=== PATIENT | male | born 1955 | race Two or more races ===

== ENCOUNTER → 2016-12-01 | Day surgery (SDC) | payer BC ==
[~2016-12-01] VITALS: Ht 162.6 cm; Wt 84.0 kg
[~2016-12-01] MED LIST: ALLERGY RELIEF1 EAC1 PO; GARCINIA CAMBO1 EACH PO; NORCO 10-325 T1 EACH PO
--- NOTE | ~2016-12-01 | OR ---
PATIENT'S NAME: MINDA JIANG [facility] AGE: 61 Y [address] ROOM: [place] [id number] LOCATION: [facility] [place] ADMIT DATE: 12/01/2016 OR/Procedure Report DISCHARGE DATE: FAMILY PHYSICIAN: Anirudh Steen ATTENDING PHYSICIAN: Eduardo Roach SURGEON: Eduardo Roach MD SENIOR PROCESS CONTROL TECH: DATE OF PROCEDURE: 12/01/2016 PREOPERATIVE DIAGNOSIS: Left varicocele. POSTOPERATIVE DIAGNOSIS: Left varicocele. PROCEDURE PERFORMED: Left varicocelectomy. ANESTHESIA: General. COMPLICATIONS: None. ESTIMATED BLOOD LOSS: Minimal. INDICATION FOR PROCEDURE: The patient is a 61-year-old male complaining of left testicular pain. The patient was noted to have a left varicocele. I explained to the patient that approximately 10% of varicoceles can cause discomfort. He was also evaluated for inguinal hernia. DETAILS OF PROCEDURE: After informed consent was obtained, the patient was taken to the operating room. A general anesthetic was applied. He was placed in the supine position. The groin and lower abdomen were prepped and draped in normal sterile fashion. A left inguinal skin incision was made with a scalpel blade. Electrocautery was used to carry the incision down to Kirsty's layer. This was also opened with the electrocautery to expose the external oblique aponeurosis. This was opened up longitudinally with a scalpel blade and Metzenbaum scissors. The patient was noted to have a large amount of cord fat. I dissected through the cord fat and I get to the spermatic cord. I continued dissecting until I located 3 large varicose veins. Each one was individually dissected out, both ends clamped and divided. Both the ends were then tied off with 3-0 silk sutures. This was repeated 2 more times. Specimens were sent to Pathology for analysis. Following this, the external oblique aponeurosis was closed with interrupted 2-0 Vicryl sutures. Kirsty's layer was closed with interrupted 3-0 Vicryl sutures and the skin was closed with 4-0 Vicryl subcuticular stitch. The wound was then dressed in normal sterile fashion. The patient tolerated the procedure well and transferred to recovery room in good condition. PATIENT'S NAME: MINDA JIANG [facility] AGE: 61 Y [address] ROOM: [place], [place] [address] LOCATION: [facility] [place] ADMIT DATE: 12/01/2016 OR/Procedure Report DISCHARGE DATE: FAMILY PHYSICIAN: Anirudh Steen ATTENDING PHYSICIAN: Eduardo Roach MD JONATAN SMILEY/ganeshl /[id number] CC: NATO Chiu MD d: 12/01/16 2216 t: 12/19/16 1443, OPERATIVE SUMMARY
[2016-12-01 07:38] LABS: BASOPHIL # 0.1 K/uL (0.0-0.2); BASOPHIL % 0.8 %; EOSINOPHIL # 0.4 K/uL (0.0-0.5); EOSINOPHIL % 6.2 %; HEMATOCRIT 45.3 % (37.0-53.0); HEMOGLOBIN 15.7 g/dL (11.0-16.0); IMMATURE GRANULOCYTE % 0.2 %; LYMPHOCYTE # 2.1 K/uL (0.8-4.0); LYMPHOCYTE % 33.2 %; MCH 30.9 pg (27.0-34.0); MCHC 34.7 gm/dL (32.0-36.5); MCV 89.2 fl (83.0-98.0); MONOCYTE # 0.5 K/uL (0.0-1.0); MONOCYTE % 7.5 %; NEUTROPHIL # (ANC) 3.3 K/uL (1.4-9.0); NEUTROPHIL % 52.1 %; NRBC % 0 /100WBC (0-0.00); PLATELET COUNT 180 K/uL (150-450); RBC 5.08 M/uL (3.50-5.50); RDW-CV 12.9 % (11.9-14.6); WBC 6.3 K/uL (4.0-11.0)
[2016-12-01 07:56] LABS: ALBUMIN 4.1 gm/dL (3.5-5.0); ALK PHOS 117 IU/L (33-138); ALT 31 IU/L (12-78); ANION GAP 14.8 (10.0-19.0); AST 20 IU/L (10-40); BLOOD UREA NITROGEN 25 mg/dL (6-24); CALCIUM 8.8 mg/dL (8.5-10.5); CHLORIDE 107 mMol/L (96-110); CO2 26 mMol/L (22-32); CREATININE 0.9 mg/dL (0.6-1.3); ESTIMATED GFR (MDRD EQUATION) > 60; POTASSIUM 3.8 mMol/L (3.7-5.1); SODIUM 144 mMol/L (135-145); TOTAL BILIRUBIN 0.9 mg/dL (0.0-1.5); TOTAL PROTEIN 7.9 g/dL (6.0-8.4)
== END | disposition disaster alternative care site (69) ==
LOC: GPOC 11-24 10:00 → GSDC 06:57
PROVIDERS: Urology
PROC: 0VBG0ZZ Excision of Left Spermatic Cord, Open Approach (ICD-10-PCS; principal; 2016-12-01)
DX: I86.1 Scrotal varices (principal); N48.0 Leukoplakia of penis; E78.00 Pure hypercholesterolemia, unspecified; Z90.49 Acquired absence of other specified parts of digestive tract
CPT/HCPCS: J0295; J0690; J1100; J1885; J2001; J2405; J3010; J7030; J7040